=== PATIENT | male | born 1980 | race Caucasian/White ===

== ENCOUNTER 2016-08-09 05:18 | Inpatient (IN) ==
[2016-08-09] MEDS ORDERED: LACTATED RINGERS 1,000 ML IV ONE (05:33)
[2016-08-09] MEDS ORDERED: KETOROLAC 30 MG/1 ML VIAL IV STA (05:33)
[2016-08-09] MEDS ORDERED: ONDANSETRON 4 MG/2 ML VIAL IV STA (05:33)
[2016-08-09] MEDS ORDERED: HYDROmorphone 2 MG/1 ML VIAL IV STA ×2 (05:33→09:06)
[2016-08-09] MEDS ORDERED: ONDANSETRON 4 MG/2 ML VIAL ONE ×2 (05:38→11:17)
[2016-08-09] MEDS ORDERED: HYDROmorphone 2 MG/1 ML VIAL ONE ×2 (05:39→09:04)
[2016-08-09] MEDS ORDERED: KETOROLAC 30 MG/1 ML VIAL ONE (05:39)
[2016-08-09 05:52] LABS: Basophils % 0.3 % (0.0-0.8); Eosinophils # 0.1 10*3/uL (0.0-0.87); Eosinophils % 0.5 % (0.00-10.9); Hematocrit 47.1 VOL% (42.0-52.0); Hemoglobin 15.9 GM/DL (14.0-18.0); Immature Granulocytes % 0.3 %; Immature Granulocytes Absolute 0.04 #; Lymphocytes # 0.9 10*3/uL (1.4-4.0); Lymphocytes % 6.8 % (21.2-54.2); Mean Corpuscular HGB Conc 33.8 GM/DL (32-36); Mean Corpuscular Hemoglobin 29 PG (27-34); Mean Corpuscular Volume 86.7 FL (87-102); Mean Platelet Volume 9.3 FL (9.6-12.0); Monocytes # 0.8 10*3/uL (0.11-0.8); Monocytes % 5.6 % (1.7-12.7); Neutrophils # 11.9 10*3/uL (1.4-7.4); Neutrophils % 86.5 % (38.7-73.9); Platelet Count 351 T/CUMM (130-400); Red Blood Count 5.43 MC/CUMM (3.8-5.5); Red Cell Distribution Width 13.2 % (9.3-17.3); White Blood Count 13.8 T/CUMM (4-12)
[2016-08-09 06:13] LABS: Albumin 3.9 G/DL (3.4-5.0); Bilirubin,Total 0.5 MG/DL (0.2-1.0); Calcium 8.3 MG/DL (8.5-10.1); Osmolality,Calculated 294.4 MOS/KG (273-304); Potassium 3.6 MMOL/L (3.5-5.1); Total Protein 6.2 G/DL (6.4-8.3)
--- NOTE | 2016-08-09 06:21 | Emergency Department Note ---
Hari Lim Brooke, am scribing for, and in the presence of, Glenn Conway MD 05:37. Zoraida Lim Hans, MD, personally performed the services described in this documentation, ascribed by Libby Noriega in my presence, and it is both accurate and complete 621 . Arrival - Arrival ED Nursing Triage Note: Pt to room per [facility] stretcher. Pt c/o ABD pain x 2 hrs. Mode of Arrival: Stretcher Limitations: No Limitations Source: Patient, RN Notes Reviewed - History of Present Illness Onset (ago): hour(s) ("couple of hours") Consistency: intermittent Quality: sharp <Glenn Conway - Last Filed: 08/09/16 06:21> <Isaías Slater - Last Filed: 08/09/16 09:13> - Arrival Chief Complaint: Abdominal / Flank Pain Stated Complaint: ABD pain Time Seen by Provider: 08/09/16 05:30 - History of Present Illness HPI Narrative: Patient is a 35 year old male who presents to the ED with c/o RLQ abdominal pain that started a couple of hours ago. Patient says the pain is intermittent and sharp. He says she has also been nauseated and vomiting but denies any blood in his stool or diarrhea. Patient has no other complaints. He has PMHx of asthma. (Libby Noriega) Patient is a 35 year old male who presents to the ED with c/o RLQ abdominal pain that started a couple of hours ago. Patient says the pain is intermittent and sharp. He says she has also been nauseated and vomiting but denies any blood in his stool or diarrhea. Patient has no other complaints. He has PMHx of asthma. (Glenn Conway) Allergies/Adverse Reactions: Allergies Allergy/AdvReac Type Severity Reaction Status Date / Time No Known Allergies Allergy Verified 08/09/16 05:25 Home Medications: Home Medications Medication Instructions Recorded Confirmed Type No Known Home Medications [No 08/18/15 08/18/15 History Known Home Medications] Review of System - Review of System 12 point system: reviewed and no additional remarkable complaints except as stated - Review of System Constitutional: Absent: fever Respiratory: Absent: respiratory distress Gastrointestinal: Present: abdominal pain (RLQ), nausea, vomiting. Absent: diarrhea, hematochezia Skin: Absent: rash <Glenn Conway - Last Filed: 08/09/16 06:21> Medical,Surgical,& Family Hx - Medical History Respiratory: History of: Asthma - Social History Smoking Status: Smoker, status unknown Frequency of Alcohol Use: None Type of Drug Use: None <Glenn Conway Last Filed: 08/09/16 06:21> Exam - General General appearance: alert, in no apparent distress - Head Head exam: Present: atraumatic, normocephalic - Eye Eye exam: Present: normal appearance, PERRL, EOMI - ENT ENT exam: Present: normal exam - Neck Neck exam: Present: normal inspection - Chest Chest inspection: Present: normal inspection, symmetric chest wall rise - Respiratory Respiratory exam: Present: normal lung sounds bilaterally - Cardiovascular Cardiovascular exam: Present: regular rate, normal rhythm, normal heart sounds - Abdominal Exam Abdominal exam: Present: soft, tenderness (RLQ), hypoactive bowel sounds. Absent: distention - Extremities Exam Extremities exam: Present: normal inspection - Back Exam Back exam: Present: normal inspection - Neurological Exam Neurological exam: Present: alert, oriented X3 - Psychiatric Psychiatric exam: Present: normal affect, normal mood - Skin Skin exam: Present: warm, dry, intact, normal color <ChaceawildaGlenn - Last Filed: 08/09/16 06:21> Vital Signs: Vital Signs Temperature 98 F 08/09/16 05:18 Pulse Rate 82 08/09/16 08:00 Respiratory Rate 18 08/09/16 08:00 Blood Pressure 108/50 08/09/16 08:00 O2 Sat by Pulse Oximetry 100 08/09/16 08:00 Course <ZoraidaGlenn - Last Filed: 08/09/16 06:21> - Consultations Time: 09:12 <Isaías Slater - Last Filed: 08/09/16 09:13> - Consultations Consultation #1: Hospitalist will admit patient (Isaías Slater) Results - Labs CBC & BMP: 08/09/16 05:40 08/09/16 05:40 Lab Results: I have reviewed the patients labs <Isaías Slater - Last Filed: 08/09/16 09:13> Disposition <Glenn Conway - Last Filed: 08/09/16 06:21> Case discussed with: patient, patient's family Time of Disposition: 09:13 <Isaías Slater - Last Filed: 08/09/16 09:13> Clinical Impression: Abdominal pain, Enteritis Disposition: Still a Patient Condition: Stable
--- NOTE | 2016-08-09 08:13 | CT Report ---
Referring physician: Isaías Slater EXAM: CT abdomen and pelvis with contrast DATE: August 09, 2016 COMPARISON: CT abdomen and pelvis March 21, 2014 REASON: Right lower quadrant abdominal pain TECHNIQUE: Axial images of the abdomen and pelvis were obtained after administration of 100 cc of Omnipaque 350 IV contrast. Coronal and sagittal reformatted images were also provided. Total DLP is 608.1 mGy*cm. FINDINGS: Lower thorax: There is minimal atelectasis at the lung bases. A 0.4 cm pleural-based nodule is also seen at the basilar portion of the right lower lobe on image 14. Its stability since March 21, 2014 suggests a benign process. ABDOMEN: Liver: Unremarkable. Gallbladder and bile ducts: The gallbladder is unremarkable. The common bile duct is mildly prominent, measuring 0.7-0.8 cm in diameter. However, this is similar to the previous CT performed on March 21, 2014. Please correlate with liver function studies. Pancreas: Unremarkable. Spleen: Unremarkable. Adrenals: Unremarkable. Kidneys and ureters: No hydronephrosis or suspicious renal lesion is identified. 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 The ureters may join distally. PELVIS: Bladder: The bladder is poorly distended and difficult to evaluate. Reproductive: Unremarkable as visualized. ABDOMEN AND PELVIS: Bowel: There is diffuse wall thickening at loops of small bowel within the mid abdomen, likely representing jejunum. There is also scattered fluid within the colon. This could be related to an infectious process, inflammatory bowel disease or other inflammatory process. There is no evidence of bowel obstruction. Appendix: The appendix is unremarkable. Vasculature: The abdominal aorta is normal in size. Peritoneum/retroperitoneum: No free air or ascites is seen. Lymph nodes: No suspicious adenopathy is seen. Abdominal/pelvic wall: Unremarkable. Bones: There is moderate disc space narrowing and mild posterior marginal spurring at L5-S1. No acute osseous process is seen. IMPRESSION: 1. Diffuse wall thickening is seen at loops of small bowel within the mid abdomen, likely representing the jejunum. There is also scattered fluid within the colon. This could represent an infectious process, inflammatory bowel disease or other inflammatory process. Followup would be helpful. 2. The common bile duct is mildly prominent, measuring 0.7-0.8 cm in diameter. However, this is similar to the previous CT performed on March 21, 2014. Please correlate with liver function studies. The CT exam was performed using one or more of the following dose reduction techniques: Automated exposure control and adjustment of the mA and/or kV according to patient size. PROCEDURE INTERPRETED AT [facility] DEPARTMENT OF RADIOLOGY Final Report Signed by: Dr. Valeria Ambrocio
[2016-08-09] MEDS ORDERED: PROMETHAZINE 25 MG/1 ML VIAL ONE (09:03)
[2016-08-09] MEDS ORDERED: PROMETHAZINE 25 MG/1 ML VIAL IM STA (09:07)
[2016-08-09] MEDS ORDERED: CIPROFLOXACIN INJ 400 MG in PREMIX 1 EACH IV STA (09:13)
[2016-08-09] MEDS ORDERED: metroNIDAZOLE INJ 500 MG in PREMIX 1 EACH IV STA (09:13)
[2016-08-09] MEDS ORDERED: metroNIDAZOLE 500 MG/100 ML PREMIX IV ONE (09:46)
[2016-08-09] MEDS ORDERED: MORPHINE 2 MG/1 ML SYRINGE IV PRN (10:39)
[2016-08-09] MEDS ORDERED: ACETAMINOPHEN 325 MG TABLET PO PRN (10:39)
[2016-08-09] MEDS ORDERED: CIPROFLOXACIN 400 MG/200 ML PREMIX IV ONE (10:43)
--- NOTE | 2016-08-09 11:10 | Hospitalist History & Physical ---
<Jackie Ashley N - Last Filed: 08/09/16 11:03> Assessment and Plan - Time spent with patient Time spent with patient: Greater than 30 minutes (1) Abdominal pain Status: Acute Current Visit: Yes (2) Enteritis Status: Acute Assessment and plan: admit to med surg GI consult hydrate aggressively stool for cultures, Cdiff, and parasites, occult stool IV Cipro and Flagyl clear liquid diet PRN meds DVT prophylaxis routine labs in AM further plan and addendum to follow per Dr. Celestin Current Visit: Yes History of Present Illness Chief complaint: abdominal pain History of present illness: Mr. Busby is a 35 year old male who presents to the ER today with abdominal pain , severe right side pain, nausea vomiting and diarrhea. States it started early this morning. He states for the last week he has had a decreased appetite. Multiple episodes of vomiting and diarrhea. Denies blood in stool or vomit. He states he abdomen "feels like fire." He is found to have an increased WBC today and inflammation at the area of the jejunum, possible infectious process on CT. He denies prior hx of IBS, chrohns, colitis or other abdominal medical history. He has a PMH of daytime sleepiness. Denies PSH. He smokes about a pack of cigarettes a day, denies drugs or alcohol. He is pale and diaphoretic on exam. Vitals show tachycardia and mild hypotension. At present he denies chest pain, shortness of breath, headache, dysuria, or edema. Home Medications Medication Instructions Recorded Confirmed Type No Known Home Medications [No 08/18/15 08/18/15 History Known Home Medications] Allergies Allergy/AdvReac Type Severity Reaction Status Date / Time No Known Allergies Allergy Verified 08/09/16 05:25 Medical,Surgical,& Family Hx - Medical History Respiratory: History of: Asthma - Social History Smoking Status: Smoker, status unknown Frequency of Alcohol Use: None Type of Drug Use: None 12 point system: reviewed and no additional remarkable complaints except as stated Exam - Constitutional Vitals: Period Temp Pulse Resp BP Sys/Brunner Pulse Ox Last 24 Hr 98 F-98 F 81-97 16-20 97-142/50-96 94-100 General appearance: no acute distress - Head Head exam: Present: normal inspection, normocephalic - Eye Eye exam: Present: EOMI. Absent: scleral icterus Pupils: Present: KADIE, normal accommodation - ENT ENT exam: Present: normal exam, normal oropharynx - Neck Neck exam: Present: normal inspection. Absent: lymphadenopathy - Respiratory Respiratory exam: Present: clear to auscultation bilaterally. Absent: wheezes - Cardiovascular Cardiovascular exam: Present: regular rate and rhythm. Absent: tachycardia - GI/Abdominal GI/Abdominal exam: Present: hyperactive bowel sounds, tenderness (RUQ, RLQ), soft - Extremities Exam Extremities exam: Present: normal inspection, full ROM. Absent: edema - Back Exam Back exam: Present: normal inspection. Absent: muscle spasm - Neurological Exam Neurological exam: Present: alert, oriented X3 - Psychiatric Psychiatric exam: Present: normal affect, normal mood - Skin Skin exam: Present: normal color, warm, diaphoretic Results - Labs CBC & BMP: 08/09/16 05:40 08/09/16 05:40 Lab Results: I have reviewed the past 24 hour labs <Belinda Celestin - Last Filed: 08/09/16 12:24> History of Present Illness History of present illness: This is an addendum to HPI completed by [employer]. I personally reviewed and examined the patient. Agree with assessment and plan. 35 years old white male without past medical history presents to ER with sudden onset of sharp abdominal pain, nausea vomiting and diarrhea. He was in his normal state the evening. This morning he had fever chills and chills. He denies any hematemesis, melena or hematochezia. Denies any sick contacts. No recent traveling. Denies any similar episodes in the past. No inflammatory bowel syndrome in the family. On admission to ER he was found to have elevated WBC 13.8. CT abdomen revealed small bowel thickening located at the jejunum with surrounding fluid. CBD is mildly prominent but no changes since last CT in 2014. Liver function looks unremarkable. He was admitted to the floor and GI was consulted. Given to liters of normal saline the ER. Zofran for nausea, morphine for abdominal pain and ciprofloxacin and Flagyl IV for presumed infection. We will collect stool for C. difficile ova and parasites and culture. Exam - Constitutional Vitals: Period Temp Pulse Resp BP Sys/Brunner Pulse Ox Last 24 Hr 86-102 18-20 134-135/82-84 100-100 Results - Labs CBC & BMP: 08/09/16 05:40 08/09/16 05:40
[2016-08-09] MEDS: ONDANSETRON 4 MG/2 ML VIAL IV PRN ×2 (11:20→21:23)
--- NOTE | 2016-08-09 12:04 | Gastrointestinal Consult Note ---
Addendum entered and electronically signed by Dae Sorto MD 08/09/16 14: 24: Patient seen and examined at 12:30 PM. Acute abdominal pain with thickening of the jejunum on CT. His symptoms were fairly sudden onset he reports no prior similar symptoms. He has had some subjective fever but no nausea vomiting no other family members have been ill. He has had no change in bowel movements and no bleeding. No weight loss is reported. He denies any illicit drug use. He does smoke. No family history of inflammatory bowel disease is known. Abdomen is soft mild diffuse tenderness no rebound or guarding Agree with additional history and physical findings per Faina Shannon [facility] as below. I have reviewed his CT with Dr. Hermann Suero who raises some question of abnormality near the superior mesenteric artery and we will proceed with CT angiogram to further evaluate this region. We will continue with antibiotic treatment for the possibility of inflammatory bowel disease specifically Crohn' s whether or not we can reach this area with an endoscope is unclear and for now we will try to exclude other vascular abnormalities antibiotics and observe. We will also check sed rate C-reactive protein and JUNIOR for the possibility of vasculitis. He does not have an acute abdomen at this time. Original Note: <Faina Rodriguez D - Last Filed: 08/09/16 11:59> Assessment and Plan (1) Abdominal pain Status: Acute Assessment and plan: 2/3-Sudden onset of abd pain, N/V, diarrhea this morning. Afebrile. WBC elevated. CT of abdomen with contrast findings noted. Stool studies pending. Plan and addendum to follow by Dr Sorto. Current Visit: Yes History of Present Illness Chief complaint: Abdominal pain, nausea, vomiting History of present illness: Mr. Busby is a 35 year old male who presented to the ER with sudden onset this morning of abdominal pain, nausea, vomiting and diarrhea. Pt states he was in his usual state of health until 4 am this morning when he was awakened from a deep sleep with sudden sharp pains to his abdomen. Shortly after this he began having nausea and vomiting. He vomited multiple times prior to coming to the ER and had a episode of runny loose diarrhea. Pt states that he has never had this happen before. He has no prior history of GI disorders in the past. Denies any coffee ground, hematemesis, melena or hematochezia. Denies any recent weight loss, fever, but does have chills. States that he has not been around anyone recently with known illness, no one in the house has been sick. He has not eaten anywhere unusual or traveled recently. He continues to have intractable nausea and vomiting with diffuse abdominal pain. States he has noted over the last few days his appetite has been decreased but no other symptoms outside of this. WBC 13.8, lipase unremarkable. LFT unremarkable. BUN/Cr 24. Stool studies pending. CT of abdomen with contrast shows small bowel thickening, located at the jejunum, with surrounding fluid. CBD noted to be mildly prominent however no changes from last CT in 2014. Stool studies are pending. Afebrile. Home Medications Medication Instructions Recorded Confirmed Type No Known Home Medications [No 08/18/15 08/09/16 History Known Home Medications] Allergies Allergy/AdvReac Type Severity Reaction Status Date / Time No Known Allergies Allergy Verified 08/09/16 05:25 Medical,Surgical,& Family Hx - Medical History Respiratory: History of: Asthma - Social History Smoking Status: Smoker, status unknown Frequency of Alcohol Use: None Type of Drug Use: None 12 point system: reviewed and no additional remarkable complaints except as stated - Constitutional Constitutional: Present: as per HPI, chills - EENT Eyes: Present: as per HPI Ears: Present: as per HPI Nose, mouth and throat: Present: as per HPI - Cardiovascular Cardiovascular: Present: as per HPI - Respiratory Respiratory: Present: as per HPI - Gastrointestinal Gastrointestinal: Present: as per HPI, abdominal pain, cramping, diarrhea, nausea, vomiting - Genitourinary Genitourinary: Present: as per HPI - Musculoskeletal Musculoskeletal: Present: as per HPI - Neurological Neurological: Present: as per HPI - Psychiatric Psychiatric: Present: as per HPI - Endocrine Endocrine: Present: as per HPI - Hematologic/Lymphatic Hematologic/Lymphatic: Present: as per HPI Exam - Constitutional Vitals: Period Temp Pulse Resp BP Sys/Brunner Pulse Ox Last 24 Hr 86-102 18-20 134-135/82-84 100-100 General appearance: normal weight, no acute distress - Head Head exam: Present: normal inspection, normocephalic - Eye Eye exam: Present: other (lids and conjunctiva unremarkable). Absent: scleral icterus - ENT ENT exam: Present: normal exam, normal oropharynx - Neck Neck exam: Present: normal inspection - Respiratory Respiratory exam: Present: clear to auscultation bilaterally. Absent: rales, rhonchi, wheezes - Cardiovascular Cardiovascular exam: Present: regular rate and rhythm. Absent: diastolic murmur , JVD, systolic murmur - GI/Abdominal GI/Abdominal exam: Present: normal bowel sounds, tenderness, soft. Absent: ascites, distended, mass, organomegaly - Extremities Exam Extremities exam: Present: normal inspection, full ROM - Back Exam Back exam: Present: normal inspection - Neurological Exam Neurological exam: Present: alert, oriented X3 - Psychiatric Psychiatric exam: Present: normal affect, normal mood - Skin Skin exam: Present: normal color, warm, dry Results - Labs CBC & BMP: 08/09/16 05:40 08/09/16 05:40 Lab Results: I have reviewed the past 24 hour labs - Diagnostic Findings Procedure: CT Abdomen and Pelvis: report reviewed by me <Dae Sorto - Last Filed: 08/09/16 14:24> History of Present Illness History of present illness: Mr. Busby is a 35 year old male Exam - Constitutional Vitals: Period Temp Pulse Resp BP Sys/Brunner Pulse Ox Last 24 Hr 86-102 18-20 134-135/82-84 100-100 Results - Labs CBC & BMP: 08/09/16 05:40 08/09/16 05:40
[2016-08-09] MEDS ORDERED: PROMETHAZINE 25 MG/1 ML VIAL IM PRN (12:26)
[2016-08-09] MEDS: SODIUM CHLORIDE 0.9% 1,000 ML IV SCH ×3 (12:48→21:25)
--- NOTE | 2016-08-09 16:59 | CT Report ---
CT angio abdomen pelvis Indication: Acute abdominal pain. Question of SMA dissection on routine CT abdomen and pelvis from 6:[address] ANGIOGRAM ABDOMEN AND PELVIS DLP: 331 mGy*cm Technique: Axial CT images of the abdomen and pelvis were obtained during the arterial and venous phases of contrast injection. 3-D vascular MIPS reconstructions and multiplanar reformats were evaluated. Omnipaque 350, 100 cc. Comparison: Diagnostic CT abdomen pelvis obtained at 0639 hrs. Arteriogram: The following findings are in addition to those discussed in the initial CT scan report. Beginning approximately 8 mm from the origin of the SMA, the SMA develops a thickwalled appearance with a small 4 mm outpouching of contrast into a false lumen. The true lumen of the SMA is 8 mm at its origin, narrowing to 4 mm at the site of the dissection, and then widening again to 6 mm downstream of the short segment dissection. This dissection measures approximately 30 mm in length. There is a second branch vessel that curves off of the anterior aspect of the SMA and then progresses to the right, supplying inflow to the ileum, that is diffusely thickwalled over a distance of approximately 40 mm. No occluded segments are demonstrated and there is no evidence of dissection involving the other SMA branches, SHA, celiac artery or renal arteries. Both renal arteries have smooth contours and there is no evidence of either fibromuscular dysplasia or polyarteritis nodosa. No aneurysmal change is seen. The common iliac, internal iliac and external iliac arteries are widely patent. No termination of flow identified. Of note, bowel thickening of the jejunum has improved dramatically since 8 hours ago, with some persistent bowel wall thickening noted in the left midabdomen. No pneumatosis shown and no mesenteric edema or other inflammatory changes are seen at this time. Impression: 1. 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 There is a small 4 mm false lumen identified with contrast enhancement. SMA is, however, patent, with a dissection causing 50% diameter stenosis. Additionally, there is a first order branch off of the SMA that supplies ileum in the right abdomen that is diffusely thickwalled without occlusion. Both of these findings suggests vasculitis, although other diagnostic considerations could include connective tissue disorders or illicit drug use. 2. No occlusions identified. 3. Improved appearance to the jejunum when compared to 8 hours earlier, with decreased bowel wall thickening. No adverse change is seen such as pneumatosis. PROCEDURE INTERPRETED AT [facility] DEPARTMENT OF RADIOLOGY Final Report Signed by: Hermann Suero M.D.
--- NOTE | 2016-08-09 17:22 | General Surgery Consult Note ---
Assessment and Plan - Time spent with patient Time spent with patient: Greater than 30 minutes (1) Abdominal pain Status: Acute Assessment and plan: I have reviewed his films and discussed this case with Dr. Suero and Dr. Sorto and Dr. Mares. 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 He is not occluded. He actually is feeling better and we discussed nonoperative treatment of this if we can however if he worsens and we may need to look at intervention with either stenting or bypass. The etiology of this is unclear. Vasculitis would be a concern however this is very focal and unusual in appearance. We are checking some rheumatologic studies and if these look abnormal and we would consider steroids but I would like to hold off steroids initially because this will make his abdominal exam more difficult to interpret. I discussed all of these issues in detail with the patient and spent a good deal of time at the bedside and discussing this with his other physicians. I will be available this weekend and we'll continue to follow him. If he worsens then we may need to look at operative intervention. 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 We will anticoagulate him however the patient understands that this may require intervention. He does not appear to be occluded. Current Visit: Yes History of Present Illness Chief complaint: abdominal pain History of present illness: Mr. 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 He describes the pain at that time as being severe that his pain at this point is mild. The pain was accompanied by nausea and vomiting. He states that prior to this over the last several days he has had early satiety and a feeling of fullness in his upper abdomen. He is never had an episode like this before. He has had some weakness and flulike symptoms over the last couple of days. He describes some myalgias and malaise. He does not know of any aggravating or alleviating factors. Home Medications Medication Instructions Recorded Confirmed Type No Known Home Medications [No 08/18/15 08/09/16 History Known Home Medications] Allergies Allergy/AdvReac Type Severity Reaction Status Date / Time No Known Allergies Allergy Verified 08/09/16 05:25 Medical,Surgical,& Family Hx - Medical History Respiratory: History of: Asthma Musculoskeletal: History of: Back/Neck Problems, Herniated Disk - Surgical History Surgical History: noncontributory - Family History Family History: noncontributory - Social History Smoking Status: Smoker, status unknown Frequency of Alcohol Use: None Type of Drug Use: None - Constitutional Constitutional: Present: chills, malaise. Absent: fever(s), weight loss - EENT Nose, mouth and throat: Absent: dysphagia, hoarseness, sore throat - Cardiovascular Cardiovascular: Absent: chest pain at rest, chest pain with activity, dyspnea, dyspnea on exertion, syncope - Respiratory Respiratory: Absent: cough, dyspnea, hemoptysis, dyspnea on exertion - Gastrointestinal Gastrointestinal: Present: abdominal pain, bloating, early satiety, nausea, vomiting. Absent: coffee ground emesis, constipation, cramping, diarrhea, hematemesis, hematochezia, melena, jaundice - Genitourinary Genitourinary: Absent: dysuria, hematuria - Musculoskeletal Musculoskeletal: Present: back pain - Neurological Neurological: Absent: focal weakness, syncope - Endocrine Endocrine: Absent: polyuria Hematologic/Lymphatic: Absent: easy bleeding, easy bruising Exam - Constitutional Vitals: Period Temp Pulse Resp BP Sys/Brunner Pulse Ox Last 24 Hr 86-102 18-20 134-135/82-84 100-100 General appearance: no acute distress - Head Head exam: Present: normocephalic - Eye Eye exam: Absent: conjunctival injection, scleral icterus - ENT Mouth exam: Present: normal voice - Neck Neck exam: Present: trachea midline. Absent: tenderness, thyromegaly - Respiratory Respiratory exam: Present: clear to auscultation bilaterally. Absent: accessory muscle use - Cardiovascular Cardiovascular exam: Present: RRR - GI/Abdominal GI/Abdominal exam: Present: normal bowel sounds, tenderness (mild right lower quadrant), soft. Absent: distended, guarding, mass, rebound - Extremities Exam Extremities exam: Absent: edema - Neurological Exam Neurological exam: Present: alert, oriented X3. Absent: motor sensory deficit Speech: Present: normal - Skin Skin exam: Present: normal color Results - Labs CBC & BMP: 08/09/16 05:40 08/09/16 05:40 Lab Results: I have reviewed the past 24 hour labs - Diagnostic Findings Procedure: CT Abdomen and Pelvis: image reviewed by me, report reviewed by me
--- NOTE | 2016-08-09 18:20 | Event Note ---
I have reviewed the CT angiogram with Dr. Suero and Dr. Valladares the third. It appears that he does have a dissection at the origin of the SMA. Etiology of this is unclear. He does not have an acute abdomen at this time. Vasculitis workup has been ordered and at this point will start him on heparin to try and prevent any further clotting forming in his SMA and observe. If he deteriorates clinically he may need surgical exploration. Dr. Trujillo was not believed that arteriogram would provide any new or treatable information. We have discussed empiric treatment with steroids however I would hold off on that unless his markers do show some evidence of underlying inflammation to suggest a vasculitis due to difficulty that may create in monitoring his exam. It is interesting that his CT changes have significantly improved on this afternoon CT from the one earlier today. Abdomen soft nondistended I have discussed the plan and findings with the patient and his family and they are in agreement.
[2016-08-09] MEDS: HEPARIN DRIP 25,000 UNITS/500 ML PREMIX IV SCH (18:56)
[2016-08-09 20:16] LABS: Barbiturates Screen,Urine Negative (Negative); Benzodiazepines Screen,Urine Negative (Negative); Cannabinoid Screen,Urine Negative (Negative); Opiate Screen,Urine Positive (Negative); Phencyclidine Screen,Urine Negative (Negative)
[2016-08-09] MEDS: metroNIDAZOLE INJ 500 MG in PREMIX 1 EACH IV SCH (21:19)
[2016-08-09] MEDS: CIPROFLOXACIN INJ 400 MG in PREMIX 1 EACH IV SCH (23:17)
[2016-08-10 02:19] LABS: Basophils % 0.5 % (0.0-0.8); Eosinophils # 0.2 10*3/uL (0.0-0.87); Eosinophils % 2.3 % (0.00-10.9); Hematocrit 39.1 VOL% (42.0-52.0); Hemoglobin 13.1 GM/DL (14.0-18.0); Immature Granulocytes % 0.2 %; Immature Granulocytes Absolute 0.02 #; Lymphocytes # 1.5 10*3/uL (1.4-4.0); Lymphocytes % 17.9 % (21.2-54.2); Mean Corpuscular HGB Conc 33.5 GM/DL (32-36); Mean Corpuscular Hemoglobin 29 PG (27-34); Mean Corpuscular Volume 87.3 FL (87-102); Mean Platelet Volume 9.5 FL (9.6-12.0); Monocytes # 0.7 10*3/uL (0.11-0.8); Monocytes % 8.1 % (1.7-12.7); Neutrophils # 5.9 10*3/uL (1.4-7.4); Platelet Count 271 T/CUMM (130-400); Red Blood Count 4.48 MC/CUMM (3.8-5.5); Red Cell Distribution Width 13.4 % (9.3-17.3); White Blood Count 8.3 T/CUMM (4-12)
[2016-08-10 02:42] LABS: Alanine Aminotransferase 14 U/L (16-61); Alkaline Phosphatase 51 U/L (45-117); Aspartate Amino Transferase 14 U/L (0-37); Bilirubin,Total < 0.39 MG/DL (0.2-1.0); Blood Urea Nitrogen 22 MG/DL (7-18); Calcium 7.6 MG/DL (8.5-10.1); Glucose 92 MG/DL (74-106); Osmolality,Calculated 298.1 MOS/KG (273-304); Potassium 3.3 MMOL/L (3.5-5.1); Sodium 149 MMOL/L (136-145); Total Protein 5.1 G/DL (6.4-8.3)
--- NOTE | 2016-08-10 08:21 | Gastrointestinal Progress Note ---
Assessment and Plan - Time spent with patient Time spent with patient: Greater than 30 minutes (1) Dissection of mesenteric artery Status: Acute Current Visit: Yes (2) Other specified counseling Status: Acute Current Visit: Yes Exam (Progress Note) - Constitutional Vitals: Period Temp Pulse Resp BP Sys/Brunner Pulse Ox Last 24 Hr 97.5 F-99.2 F 61-102 16-20 99-135/57-85 97-100 Results - Labs CBC & BMP: 08/10/16 02:03 08/10/16 02:03 Note Addendum: PLEASE NOTE -- automatic citation of patient information is unavoidable in this electronic note. I have made a reasonable effort to review the information cited , but it is not a part of my evaluation, impression, or recommendation unless specifically discussed in the dictated text that follows. As well, voice recognition software was used in the creation of this clinical note. Reasonable effort was made to identify and correct gross errors. Despite proofreading, errors in full fashioned garment knitter may be present, including nonsense verbiage at times. If you encounter such an error, please contact me at for discussion and correction. -- Yvonne Chief complaint: abdominal pain Subjective: the patient is a 35-year-old male seen for follow-up of abdominal pain. He was admitted to the hospitalist service yesterday with acute of sudden onset pain. He underwent CT scanning with dilated loops of small bowel in the jejunum earlier in the day and sit angiogram with improved thickening in the bowel but identification of a SMA dissection later in the day. Autoimmune spectrum vasculitis is apparently under consideration but not definitive at this point. General surgery consultation, Dr. Blaine HAYS, has been taken and recommendation is to try to manage this non-operatively. The patient reports he is feeling much better than when he was admitted but continues to have short painful episodes. He is eating comfortably and tolerating food. He has had a bowel movement with no blood, mucus, or pus. Medications: Tylenol, ciprofloxacin, heparin, [place], Flagyl, morphine, Zofran, Phenergen Review of Symptoms: 12 point review of symptoms was negative except as noted above Physical examination: Vital Signs: Current vital signs reviewed. General Appearance: lying in bed. Comfortable. No apparent distress. Head: Normocephalic. Eyes: no scleral icterus. No scleral injection. No conjunctival pallor. Oral Cavity: Odor of breath was normal. No drooling was observed. Lips showed no abnormalities. Lungs: Respiration rhythm and depth was normal. Cardiovascular: Heart rate and rhythm were normal. Abdomen: abdomen was not distended. Abdominal auscultation revealed no abnormalities. Ascites was not discovered. Abdominal palpation revealed mild tenderness and no hepatosplenomegaly. Musculoskeletal System: musculoskeletal system was grossly normal. Neurological: level of consciousness was normal. Speech was normal. No coordination/cerebellum abnormalities were noted. Skin: Gen. appearance was normal. Color and pigmentation were normal. No skin lesions were appreciated. Laboratory: white blood count 8.3, hemoglobin 13.1, hematocrit 39.1, platelets 271, PTT 66, ALT 14, AST 14, total bilirubin 0.4, albumin 3.0, total protein 5.1 Radiology: reviewed as documented above Impressions: 1. Superior mesenteric artery dissection -- with CT evidence of inflammatory change in the small bowel, the question of inflammatory bowel disease has been raised. It is true that vasculitis is a uncommon extra intestinal manifestation of inflammatory bowel disease. its also true that spontaneous dissection of the SMA is an uncommon finding in a person in this age group without such a risk factor. Understanding that, it remains a difficult diagnostic dilemma, and I agree with continued pursuit of autoimmune markers prior to starting steroid, particularly if clinical course remains positive. It would not be unreasonable to contact cardiology for consideration of intravascular evaluation with consideration of stenting, particularly if the patient experiences a clinical reversal. Of course, should the patient experience rupture, surgical intervention may be necessary. Endoscopic evaluation is not indicated at this point. We will continue to follow with you. 2. Patient Counseling: Medical Management -- Patient seen for greater than 30 minutes. Greater than 50% of this time was spent counseling regarding differential diagnosis, likely diagnosis,, diagnostic and therapeutic options, risks, benefits, and alternatives to procedures and medications, informed consent, and plan of care generally. Patient has expressed understanding and wishes to proceed. Recommendations: -- continue volume management -- continue anticoagulation -- consider cardiology evaluation for consideration of intravascular therapy -- follow-up results of autoimmune testing -- endoscopic evaluation should be considered during convalescence -- we will continue to follow with you
--- NOTE | 2016-08-10 08:54 | General Surgery Progress Note ---
Assessment and Plan (1) Abdominal pain Status: Acute Assessment and plan: I have reviewed his films and discussed this case with Dr. Suero and Dr. Sorto and Dr. Mares. 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 He is not occluded. He actually is feeling better and we discussed nonoperative treatment of this if we can however if he worsens and we may need to look at intervention with either stenting or bypass. The etiology of this is unclear. Vasculitis would be a concern however this is very focal and unusual in appearance. We are checking some rheumatologic studies and if these look abnormal and we would consider steroids but I would like to hold off steroids initially because this will make his abdominal exam more difficult to interpret. I discussed all of these issues in detail with the patient and spent a good deal of time at the bedside and discussing this with his other physicians. I will be available this weekend and we'll continue to follow him. If he worsens then we may need to look at operative intervention. 08/10: He feels better. He has less abdominal pain but still has some soreness in his right lower quadrant. He has no acidosis or signs of bowel ischemia. His white blood cell count is normal. I would continue with anticoagulation IV at this point and I will leave it up to Dr. Mares on Friday about converting to oral anticoagulation. Hopefully we can avoid operative intervention . 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 We will anticoagulate him however the patient understands that this may require intervention. He does not appear to be occluded. Current Visit: Yes Subjective Patient reports: Present: feels better, pain is less. Absent: blood in stool, nausea, vomiting, fever Exam - Constitutional Vitals: Period Temp Pulse Resp BP Sys/Brunner Pulse Ox Last 24 Hr 97.5 F-99.2 F 61-102 16-20 99-135/57-85 97-100 General appearance: no acute distress - Head Head exam: Present: normocephalic - Eye Eye exam: Absent: scleral icterus - Respiratory Respiratory exam: Absent: accessory muscle use - GI/Abdominal GI/Abdominal exam: Present: soft. Absent: distended, guarding, tenderness, rebound Results - Labs CBC & BMP: 08/10/16 02:03 08/10/16 02:03 Lab Results: I have reviewed the past 24 hour labs
[2016-08-10] MEDS: CIPROFLOXACIN INJ 400 MG in PREMIX 1 EACH IV SCH ×2 (09:39→21:19)
--- NOTE | 2016-08-10 12:44 | Hospitalist Progress Note ---
Assessment and Plan (1) Dissection of mesenteric artery Status: Acute Assessment and plan: Dr James, Managed by Surgery, cont heparin drip, vasculitis workup pending Current Visit: Yes (2) Enteritis Status: Acute Assessment and plan: Continue Cipro and Flagyl for now Current Visit: Yes Hospitalist: Subjective Interval history: Spoke with Dr. Valladares the third about this case. He feels that patient is stable from the floor and does not need any intervention at this point. Dr. James is aware of patient and is available if intervention needed prior to Friday. Exam - Constitutional Vitals: Period Temp Pulse Resp BP Sys/Brunner Pulse Ox Last 24 Hr 97.5 F-98.9 F 61-99 16-20 99-132/57-68 97-100 Exam: Heart Rate-[RRR] Lungs-[CTAB] GI-[+bs soft, NT] Ext-[no edema] neuro motor 5/5, alert and oriented times 3 psych normal mood and affect General no acute distress Results - Labs CBC & BMP: 08/10/16 02:03 08/10/16 02:03 Lab Results: I have reviewed the past 24 hour labs - Diagnostic Findings Procedure: CT Abdomen and Pelvis: report reviewed by me (30 mm dissection of prox sma.)
[2016-08-10] MEDS: metroNIDAZOLE INJ 500 MG in PREMIX 1 EACH IV SCH ×2 (12:58→23:29)
[2016-08-10] MEDS: POTASSIUM CHLORIDE INJ 40 MEQ in SODIUM CHLORIDE 0.45% 1,000 ML IV SCH (14:58)
[2016-08-10] MEDS: HEPARIN DRIP 25,000 UNITS/500 ML PREMIX IV SCH (15:00)
[2016-08-10] MEDS: ONDANSETRON 4 MG/2 ML VIAL IV PRN (21:18)
[2016-08-10 23:10] LABS: INR 1.1; PT Patient Result 11.9 SECS
[2016-08-10 23:11] LABS: Partial Thromboplastin Time 86.3 SECS (0-40)
[2016-08-11] MEDS: HEPARIN DRIP 25,000 UNITS/500 ML PREMIX IV SCH ×2 (00:06→16:02)
[2016-08-11] MEDS: POTASSIUM CHLORIDE INJ 40 MEQ in SODIUM CHLORIDE 0.45% 1,000 ML IV SCH ×2 (02:15→18:08)
[2016-08-11 07:02] LABS: INR 1.1; PT Patient Result 11.8 SECS
[2016-08-11 07:13] LABS: Partial Thromboplastin Time 58.9 SECS (0-40)
--- NOTE | 2016-08-11 09:49 | General Surgery Progress Note ---
Assessment and Plan (1) Abdominal pain Status: Acute Assessment and plan: I have reviewed his films and discussed this case with Dr. Suero and Dr. Sorto and Dr. Mares. 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 He is not occluded. He actually is feeling better and we discussed nonoperative treatment of this if we can however if he worsens and we may need to look at intervention with either stenting or bypass. The etiology of this is unclear. Vasculitis would be a concern however this is very focal and unusual in appearance. We are checking some rheumatologic studies and if these look abnormal and we would consider steroids but I would like to hold off steroids initially because this will make his abdominal exam more difficult to interpret. I discussed all of these issues in detail with the patient and spent a good deal of time at the bedside and discussing this with his other physicians. I will be available this weekend and we'll continue to follow him. If he worsens then we may need to look at operative intervention. 08/10: He feels better. He has less abdominal pain but still has some soreness in his right lower quadrant. He has no acidosis or signs of bowel ischemia. His white blood cell count is normal. I would continue with anticoagulation IV at this point and I will leave it up to Dr. Mares on Friday about converting to oral anticoagulation. Hopefully we can avoid operative intervention . I do not see signs of bowel ischemia or an acute abdomen 08/11: He feels better and has less abdominal pain. His abdomen is nontender. I do not see evidence of significant bowel ischemia. 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 We will anticoagulate him however the patient understands that this may require intervention. He does not appear to be occluded. 08/11: We are keeping him anticoagulated for this finding. I have discussed this case with Dr. Mares. He does not have evidence of vascular occlusion at this point. His ESR is normal. Current Visit: Yes Subjective Patient reports: Present: feels better, pain is less, tolerating liquids well. Absent: nausea, vomiting, shortness of breath, fever Exam - Constitutional Vitals: Period Temp Pulse Resp BP Sys/Brunner Pulse Ox Last 24 Hr 97.9 F-98.7 F 52-64 18-20 99-116/55-73 96-98 General appearance: no acute distress - Head Head exam: Present: normocephalic - Eye Eye exam: Absent: scleral icterus - Respiratory Respiratory exam: Absent: accessory muscle use - GI/Abdominal GI/Abdominal exam: Present: soft. Absent: distended, tenderness, rebound Results - Labs CBC & BMP: 08/10/16 02:03 08/10/16 02:03
[2016-08-11] MEDS: ALBUTEROL/IPRATROPIUM 3 ML NEB RESP TX SCH ×3 (10:09→20:06)
--- NOTE | 2016-08-11 10:51 | Gastrointestinal Progress Note ---
Assessment and Plan (1) Dissection of mesenteric artery Status: Acute Current Visit: Yes (2) Other specified counseling Status: Acute Current Visit: Yes Exam (Progress Note) - Constitutional Vitals: Period Temp Pulse Resp BP Sys/Brunner Pulse Ox Last 24 Hr 97.9 F-98.7 F 48-64 16-20 99-116/55-73 96-99 Results - Labs CBC & BMP: 08/10/16 02:03 08/10/16 02:03 Note Addendum: PLEASE NOTE -- automatic citation of patient information is unavoidable in this electronic note. I have made a reasonable effort to review the information cited , but it is not a part of my evaluation, impression, or recommendation unless specifically discussed in the dictated text that follows. As well, voice recognition software was used in the creation of this clinical note. Reasonable effort was made to identify and correct gross errors. Despite proofreading, errors in site interpreter may be present, including nonsense verbiage at times. If you encounter such an error, please contact me at for discussion and correction. -- Yvonne Chief complaint: abdominal pain Subjective: the patient is a 35-year-old male seen for follow-up of SMA dissection. Patient reports continued improvement but still is having episodes of pain. His general surgeon does not find evidence of significant bowel ischemia. He is eating and drinking comfortably. Has not had a bowel movement no new labs today. Medications: Tylenol, ciprofloxacin, heparin, [place], Flagyl, morphine, Zofran, Phenergen Review of Symptoms: 12 point review of symptoms was negative except as noted above Physical examination: Vital Signs: Current vital signs reviewed. General Appearance: lying in bed. Comfortable. No apparent distress. Head: Normocephalic. Eyes: no scleral icterus. No scleral injection. No conjunctival pallor. Oral Cavity: Odor of breath was normal. No drooling was observed. Lips showed no abnormalities. Lungs: Respiration rhythm and depth was normal. Cardiovascular: Heart rate and rhythm were normal. Abdomen: abdomen was not distended. Abdominal auscultation revealed no abnormalities. Ascites was not discovered. Abdominal palpation revealed mild tenderness and no hepatosplenomegaly. Musculoskeletal System: musculoskeletal system was grossly normal. Neurological: level of consciousness was normal. Speech was normal. No coordination/cerebellum abnormalities were noted. Skin: Gen. appearance was normal. Color and pigmentation were normal. No skin lesions were appreciated. Laboratory: no new labs today Radiology: reviewed Impressions: 1. Superior mesenteric artery dissection -- the patient seems to be recovering at this point. Surveillance radiology is probably the next most reasonable diagnostic there remains a potential need for intravascular intervention. There is no indication for present. 2. Patient Counseling: Medical Management -- Patient seen for less than 30 minutes. Greater than 50% of this time was spent counseling regarding differential diagnosis, likely diagnosis,, diagnostic and therapeutic options, risks, benefits, and alternatives to procedures and medications, informed consent, and plan of care generally. Patient has expressed understanding and wishes to proceed. Recommendations: -- continue volume management -- continue anticoagulation -- endoscopic evaluation should be considered during convalescence -- we will continue to follow with you. Dr. Sorto will resume G.I. care for this patient.
[2016-08-11] MEDS: CIPROFLOXACIN INJ 400 MG in PREMIX 1 EACH IV SCH ×2 (11:02→21:26)
[2016-08-11] MEDS: metroNIDAZOLE INJ 500 MG in PREMIX 1 EACH IV SCH ×2 (13:47→23:30)
--- NOTE | 2016-08-11 15:09 | Hospitalist Progress Note ---
Assessment and Plan (1) Dissection of mesenteric artery Status: Acute Assessment and plan: Dr James and interventional radiology will see in am, cont heparin drip, vasculitis unlikely with sed rate of 2 Current Visit: Yes (2) Enteritis Status: Acute Assessment and plan: Continue Cipro and Flagyl for now Current Visit: Yes (3) COPD (chronic obstructive pulmonary disease) Status: Acute Assessment and plan: duonebs ordered Current Visit: Yes Hospitalist: Subjective Interval history: Patient's pain is unchanged. Dr. Valladares the third does not see any evidence of bowel ischemia. Plan for possible intervention by interventional radiology and Dr. Mares in am. Patient says he is not sleeping and will give him Sonata. He also has some COPD but does not want a nicotine patch but would look like some breathing treatments. Exam - Constitutional Vitals: Period Temp Pulse Resp BP Sys/Brunner Pulse Ox Last 24 Hr 98 F-98.7 F 48-64 16-18 99-116/55-67 96-99 Exam: Heart Rate-[RRR] Lungs-[CTAB but diminished] GI-[+bs soft, diffusely tender] Ext-[no edema] neuro motor 5/5, alert and oriented times 3 psych normal mood and affect General no acute distress Results - Labs CBC & BMP: 08/10/16 02:03 08/10/16 02:03 Lab Results: I have reviewed the past 24 hour labs
[2016-08-11 15:36] LABS: INR 1.1; PT Patient Result 11.4 SECS; Partial Thromboplastin Time 38.2 SECS (0-40)
[2016-08-11] MEDS ORDERED: POTASSIUM CHLORIDE INJ 20 MEQ in SODIUM CHLORIDE 0.45% 1,000 ML IV SCH (16:00)
[2016-08-11] MEDS ORDERED: MAGNESIUM HYDROXIDE SUSP 30 ML UDCUP PO PRN (16:39)
[2016-08-11] MEDS ORDERED: HEPARIN 5,000 UNIT/1 ML VIAL IV ONE (16:47)
[2016-08-11] MEDS: SODIUM CHLOR 0.45% KCL 20 MEQ 20 MEQ/1,000 ML BAG IV SCH (18:32)
[2016-08-11] MEDS: ONDANSETRON 4 MG/2 ML VIAL IV PRN (19:44)
[2016-08-11] MEDS: ZALEPLON 5 MG CAPSULE PO SCH (21:26)
[2016-08-12 00:38] LABS: Basophils % 0.6 % (0.0-0.8); Eosinophils # 0.2 10*3/uL (0.0-0.87); Eosinophils % 3.6 % (0.00-10.9); Hematocrit 36.1 VOL% (42.0-52.0); Hemoglobin 11.7 GM/DL (14.0-18.0); Lymphocytes # 2.3 10*3/uL (1.4-4.0); Lymphocytes % 36.7 % (21.2-54.2); Mean Corpuscular HGB Conc 32.4 GM/DL (32-36); Mean Corpuscular Hemoglobin 29 PG (27-34); Mean Corpuscular Volume 88.7 FL (87-102); Mean Platelet Volume 9.5 FL (9.6-12.0); Monocytes # 0.8 10*3/uL (0.11-0.8); Monocytes % 12.3 % (1.7-12.7); Neutrophils # 2.9 10*3/uL (1.4-7.4); Neutrophils % 46.8 % (38.7-73.9); Platelet Count 258 T/CUMM (130-400); Red Blood Count 4.07 MC/CUMM (3.8-5.5); Red Cell Distribution Width 13.2 % (9.3-17.3); White Blood Count 6.2 T/CUMM (4-12)
[2016-08-12 01:00] LABS: INR 1.1; PT Patient Result 11.4 SECS
[2016-08-12 01:09] LABS: Partial Thromboplastin Time 81.9 SECS (0-40)
[2016-08-12 01:15] LABS: Calcium 7.9 MG/DL (8.5-10.1); Potassium 3.1 MMOL/L (3.5-5.1)
[2016-08-12 06:49] LABS: PT Patient Result 11.1 SECS
[2016-08-12 06:59] LABS: Partial Thromboplastin Time 84.4 SECS (0-40)
[2016-08-12] MEDS: ALBUTEROL/IPRATROPIUM 3 ML NEB RESP TX SCH ×3 (07:32→19:46)
[2016-08-12] MEDS: CIPROFLOXACIN INJ 400 MG in PREMIX 1 EACH IV SCH ×2 (09:28→21:00)
[2016-08-12] MEDS: SODIUM CHLOR 0.45% KCL 20 MEQ 20 MEQ/1,000 ML BAG IV SCH (09:28)
[2016-08-12] MEDS: POTASSIUM CHLORIDE INJ 40 MEQ in SODIUM CHLORIDE 0.45% 1,000 ML IV SCH (09:41)
--- NOTE | 2016-08-12 10:13 | Hospitalist Progress Note ---
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 On heparin infusion. continue clears. autoimmune workup for vasculitis was negative- ESR is 2. 2)hypernatremia- change to d5w at 125. consult branch retail executive for PPN. 3)hypokalemia- replace with IV riders. 4)smoker- counselled cessation- smoking contributed to this problem. Current Visit: Yes (2) Abdominal pain Status: Acute Current Visit: Yes Qualifiers: Abdominal location: right lower quadrant Qualified Code(s): R10.31 - Right lower quadrant pain (3) Enteritis Status: Acute Current Visit: Yes Hospitalist: Subjective Interval history: Mr Busby continues to have pain in RLQ and lower abdomen, sometimes also in back. He ate some soft food yesterday adn had return of his symptoms from admission- severe pain, nausea. He is tolerating clears. Dr James to see today. No fever, no new complaints. Up to walk in halls, sit in chair. On heparin. Exam - Constitutional Vitals: Period Temp Pulse Resp BP Sys/Brunner Pulse Ox Last 24 Hr 98 F-98.8 F 53-79 16-20 99-121/52-66 94-100 General appearance: normal weight, no acute distress - Head Head exam: Present: normocephalic, atraumatic - Eye Eye exam: Present: EOMI. Absent: scleral icterus - Respiratory Respiratory exam: Present: clear to auscultation bilaterally - Cardiovascular Cardiovascular exam: Present: regular rate and rhythm - GI/Abdominal GI/Abdominal exam: Present: normal bowel sounds, tenderness (full feeling in RLQ and lower abdomen), soft - Extremities Exam Extremities exam: Absent: edema - Neurological Exam Neurological exam: Present: alert, oriented X3 - Skin Skin exam: Present: warm, dry Results - Labs CBC & BMP: 08/12/16 00:24 08/12/16 00:24 Lab Results: I have reviewed the past 24 hour labs
[2016-08-12] MEDS ORDERED: NICOTINE 21 MG/24 HR PATCH TRANSDERM PRN (10:42)
--- NOTE | 2016-08-12 11:08 | Gastrointestinal Progress Note ---
<Faina Rodriguez - Last Filed: 08/12/16 11:04> Assessment and Plan (1) Abdominal pain Status: Acute Assessment and plan: /-Abd pain improved except with eating. No N/V. Continue to monitor at this time. Plan and addendum to follow by DR Sorto. 2/3-Sudden onset of abd pain, N/V, diarrhea this morning. Afebrile. WBC elevated. CT of abdomen with contrast findings noted. Stool studies pending. Plan and addendum to follow by Dr Sorto. Current Visit: Yes Qualifiers: Abdominal location: right lower quadrant Qualified Code(s): R10.31 - Right lower quadrant pain Gastroenterology - PN: Subj Interval history: CC: Abdominal pain Pt is awake and alert sitting up in bed. States he is feeling about the same. He states he has some abdominal pain when he tries to eat other than this he has had no other symptoms. No nausea or vomiting. He is noted to be going outside to smoke today. Discussed this with him that he does not need to continue smoking and as well high risk with the heparin infusion. Pt states that he will not smoke anymore and discussed nicotine patch. Abdomen is soft, nontender. ROS: Denies SOB or chest pain Exam (Progress Note) - Constitutional Vitals: Period Temp Pulse Resp BP Sys/Brunner Pulse Ox Last 24 Hr 98 F-98.8 F 53-79 16-20 99-121/52-66 94-100 General appearance: normal weight, no acute distress - Head Head exam: Present: normal inspection, normocephalic - Eye Eye exam: Present: other (lids and conjunctiva unremarakble). Absent: scleral icterus - ENT ENT exam: Present: normal exam, normal oropharynx - Neck Neck exam: Present: normal inspection - Respiratory Respiratory exam: Present: clear to auscultation bilaterally. Absent: rales, rhonchi, wheezes - Cardiovascular Cardiovascular exam: Present: regular rate and rhythm. Absent: diastolic murmur , JVD, systolic murmur - GI/Abdominal GI/Abdominal exam: Present: normal bowel sounds, soft. Absent: ascites, distended, mass, organomegaly, tenderness - Extremities Exam Extremities exam: Present: normal inspection, full ROM - Back Exam Back exam: Present: normal inspection - Neurological Exam Neurological exam: Present: alert, oriented X3 - Psychiatric Psychiatric exam: Present: normal affect, normal mood - Skin Skin exam: Present: normal color, warm, dry Results - Labs CBC & BMP: 08/12/16 00:24 08/12/16 00:24 Lab Results: I have reviewed the past 24 hour labs <Dae Sorto - Last Filed: 08/12/16 17:20> Exam (Progress Note) - Constitutional Vitals: Period Temp Pulse Resp BP Sys/Brunner Pulse Ox Last 24 Hr 98 F-98.5 F 58-83 18-22 99-115/52-74 94-100 Results - Labs CBC & BMP: 08/12/16 00:24 08/12/16 00:24
[2016-08-12] MEDS: POTASSIUM CHLORIDE RIDER 10 MEQ in PREMIX 1 EACH IV SCH ×4 (11:21→18:45)
[2016-08-12] MEDS: metroNIDAZOLE INJ 500 MG in PREMIX 1 EACH IV SCH ×2 (11:21→23:25)
[2016-08-12] MEDS: DEXTROSE 5% 1,000 ML IV SCH (11:22)
[2016-08-12] MEDS: HEPARIN DRIP 25,000 UNITS/500 ML PREMIX IV SCH (13:12)
[2016-08-12] MEDS: FAT EMULSION 20% 250 ML IV SCH (14:14)
--- NOTE | 2016-08-12 14:43 | General Surgery Progress Note ---
Assessment and Plan (1) Abdominal pain Status: Acute Assessment and plan: I have reviewed his films and discussed this case with Dr. Suero and Dr. Sorto and Dr. Mares. 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 He is not occluded. He actually is feeling better and we discussed nonoperative treatment of this if we can however if he worsens and we may need to look at intervention with either stenting or bypass. The etiology of this is unclear. Vasculitis would be a concern however this is very focal and unusual in appearance. We are checking some rheumatologic studies and if these look abnormal and we would consider steroids but I would like to hold off steroids initially because this will make his abdominal exam more difficult to interpret. I discussed all of these issues in detail with the patient and spent a good deal of time at the bedside and discussing this with his other physicians. I will be available this weekend and we'll continue to follow him. If he worsens then we may need to look at operative intervention. 08/10: He feels better. He has less abdominal pain but still has some soreness in his right lower quadrant. He has no acidosis or signs of bowel ischemia. His white blood cell count is normal. I would continue with anticoagulation IV at this point and I will leave it up to Dr. Mares on Friday about converting to oral anticoagulation. Hopefully we can avoid operative intervention . I do not see signs of bowel ischemia or an acute abdomen 08/11: He feels better and has less abdominal pain. His abdomen is nontender. I do not see evidence of significant bowel ischemia. 08/12: He feels better but when he tried to eat last night had abdominal pain again similar to before. This is concerning to me for potential intestinal angina. I have discussed the case with Dr. Mares and with Dr. Suero they're going to look at the potential for intervention. In the meantime we're keeping him anticoagulated. I do not see an indication for bowel resection or laparotomy at this point. He has no acidosis or signs of bowel necrosis. 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 We will anticoagulate him however the patient understands that this may require intervention. He does not appear to be occluded. 08/11: We are keeping him anticoagulated for this finding. I have discussed this case with Dr. Mares. He does not have evidence of vascular occlusion at this point. His ESR is normal. Current Visit: Yes Subjective Patient reports: Present: feels better, still having pain, tolerating liquids well. Absent: nausea, vomiting Exam - Constitutional Vitals: Period Temp Pulse Resp BP Sys/Brunner Pulse Ox Last 24 Hr 98 F-98.8 F 53-83 16-22 99-121/52-66 94-100 General appearance: no acute distress - Respiratory Respiratory exam: Absent: accessory muscle use - GI/Abdominal GI/Abdominal exam: Present: soft. Absent: distended, tenderness, rebound Results - Labs CBC & BMP: 08/12/16 00:24 08/12/16 00:24 Lab Results: I have reviewed the past 24 hour labs
--- NOTE | 2016-08-12 15:49 | General Surgery Consult Note ---
History of Present Illness Chief complaint: abnormal superior mesenteric artery History of present illness: Mr. Busby is a 35 year old male I discussed Mr. Busby and his findings with Dr. Valladares the third and Dr. Suero. Interestingly he was admitted with acute abdominal pain nausea and vomiting and found on CT scan to have been only some jejunal thickening but an abnormality in the superior mesenteric artery formal CT angiogram is been done does show somewhat in the proximal superior mesenteric artery and. It appears to be dissection of plaque and then more distally some thickening of the artery which could be some degree of arthritis. The patient initially was having difficulty eating that this was manifest by pain in the right water and he states today he his gotten quite a bit better he's actually gone down to the [place] without difficulty. He states he's quite hungry. At this point time I think we need to better define the pathology of the superior mesenteric artery and I think formal arteriogram would best do this. I think then discussion would have to be it we do have a finding of a dissection or other potentially life-threatening problem whether or not stenting would be appropriate versus direct surgical intervention. I think we need to maintain him on heparin for now and get an arteriogram when it can be done and then we can decide what the next course of action. Discussed this with the patient and he seems to understand and agrees with Home Medications Medication Instructions Recorded Confirmed Type No Known Home Medications [No 08/18/15 08/09/16 History Known Home Medications] Allergies Allergy/AdvReac Type Severity Reaction Status Date / Time No Known Allergies Allergy Verified 08/09/16 05:25 Medical,Surgical,& Family Hx - Medical History Respiratory: History of: Asthma Musculoskeletal: History of: Back/Neck Problems, Herniated Disk - Social History Smoking Status: Smoker, status unknown Frequency of Alcohol Use: None Type of Drug Use: None Exam - Constitutional Vitals: Period Temp Pulse Resp BP Sys/Brunner Pulse Ox Last 24 Hr 98 F-98.8 F 53-83 16-22 99-121/52-66 94-100 Results - Labs CBC & BMP: 08/12/16 00:24 08/12/16 00:24
--- NOTE | 2016-08-12 16:53 | IR History and Physical Update ---
IR Pre-Procedure - History and Physical H&P was reviewed, the patient examined and there: are no changes in the patients condition since last H&P was completed. 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 However, patient continues to exhibit symptoms of postprandial angina, although symptoms have improved significantly since admission last Friday. Patient eating a bag of Doritos chips when I walked in the room just now. - Dictation Physical: refer to H&P completed by admitting physician - Physical Exam Vital Signs: Last Vital Signs Temp 98 F 08/12/16 04:00 Pulse 69 08/12/16 13:44 Resp 22 08/12/16 13:44 BP 99/52 08/12/16 04:00 Pulse Ox 100 08/12/16 13:44 Mental Status: alert and oriented - Sedation IR anesthesia plan for sedation: minimal ASA Class: I - Risks Risks: Procedures explained. Risks discussed include, but not limited to, the following:[ Stent placement, thrombosis of stent and SMA, need for eventual surgery, bleeding] All questions answered. 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 Plan: Mesenteric angiogram tomorrow. Possible stent placement if no other options exists and if lesion appears hemodynamically significant. Encourage smoking cessation. Current Visit: Yes
[2016-08-12] MEDS: TRACE ELEMENTS (5) 1 ML, MULTIVITAMIN INJ 10 ML in AMINO ACIDS/DEXT/LYTES 4.25-5% 2,000 ML IV SCH (18:47)
[2016-08-12] MEDS: ZALEPLON 5 MG CAPSULE PO SCH (20:59)
[2016-08-13] MEDS ORDERED: MIDAZOLAM 2 MG/2 ML VIAL IV ONE (00:01)
[2016-08-13] MEDS ORDERED: DIAZEPAM 5 MG TABLET PO ONE ×2 (00:01→10:30)
[2016-08-13] MEDS ORDERED: fentaNYL 100 MCG/2 ML VIAL IV ONE (00:01)
[2016-08-13 05:55] LABS: Basophils % 0.6 % (0.0-0.8); Eosinophils # 0.6 10*3/uL (0.0-0.87); Eosinophils % 9.4 % (0.00-10.9); Hematocrit 38.6 VOL% (42.0-52.0); Hemoglobin 12.3 GM/DL (14.0-18.0); Immature Granulocytes % 0.3 %; Immature Granulocytes Absolute 0.02 #; Lymphocytes # 2.9 10*3/uL (1.4-4.0); Lymphocytes % 44.5 % (21.2-54.2); Mean Corpuscular HGB Conc 31.9 GM/DL (32-36); Mean Corpuscular Hemoglobin 29 PG (27-34); Mean Corpuscular Volume 90.2 FL (87-102); Mean Platelet Volume 9.4 FL (9.6-12.0); Monocytes # 0.9 10*3/uL (0.11-0.8); Monocytes % 13.8 % (1.7-12.7); Neutrophils % 31.4 % (38.7-73.9); Platelet Count 265 T/CUMM (130-400); Red Blood Count 4.28 MC/CUMM (3.8-5.5); Red Cell Distribution Width 13.2 % (9.3-17.3); White Blood Count 6.5 T/CUMM (4-12)
[2016-08-13 06:17] LABS: Eosinophils 8 % (0-10); Hypochromasia Slight; Lymphocytes 43 % (20-55); Platelet Estimate Normal; Segmented Neutrophils 36 % (50-85); Total Cells Counted 100
[2016-08-13 06:32] LABS: Calcium 8.2 MG/DL (8.5-10.1); Osmolality,Calculated 292.3 MOS/KG (273-304); Potassium 3.9 MMOL/L (3.5-5.1)
[2016-08-13 06:39] LABS: Magnesium 2.5 MG/DL (1.8-2.4); Phosphorous 4.4 MG/DL (2.5-4.9); Prealbumin 18.1 MG/DL (20-40)
[2016-08-13] MEDS: ALBUTEROL/IPRATROPIUM 3 ML NEB RESP TX SCH ×3 (07:09→19:56)
--- NOTE | 2016-08-13 07:17 | General Surgery Progress Note ---
Assessment and Plan (1) Abdominal pain Status: Acute Assessment and plan: I have reviewed his films and discussed this case with Dr. Suero and Dr. Sorto and Dr. Mares. 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 He is not occluded. He actually is feeling better and we discussed nonoperative treatment of this if we can however if he worsens and we may need to look at intervention with either stenting or bypass. The etiology of this is unclear. Vasculitis would be a concern however this is very focal and unusual in appearance. We are checking some rheumatologic studies and if these look abnormal and we would consider steroids but I would like to hold off steroids initially because this will make his abdominal exam more difficult to interpret. I discussed all of these issues in detail with the patient and spent a good deal of time at the bedside and discussing this with his other physicians. I will be available this weekend and we'll continue to follow him. If he worsens then we may need to look at operative intervention. 08/10: He feels better. He has less abdominal pain but still has some soreness in his right lower quadrant. He has no acidosis or signs of bowel ischemia. His white blood cell count is normal. I would continue with anticoagulation IV at this point and I will leave it up to Dr. Mares on Friday about converting to oral anticoagulation. Hopefully we can avoid operative intervention . I do not see signs of bowel ischemia or an acute abdomen 08/11: He feels better and has less abdominal pain. His abdomen is nontender. I do not see evidence of significant bowel ischemia. 08/12: He feels better but when he tried to eat last night had abdominal pain again similar to before. This is concerning to me for potential intestinal angina. I have discussed the case with Dr. Mares and with Dr. Suero they're going to look at the potential for intervention. In the meantime we're keeping him anticoagulated. I do not see an indication for bowel resection or laparotomy at this point. He has no acidosis or signs of bowel necrosis. 08/13: He feels much better today. He is nearly pain-free at this point. He tolerated a by mouth diet better last night. He is for arteriogram today to look at his care mesenteric artery and see if any intervention is needed. 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 We will anticoagulate him however the patient understands that this may require intervention. He does not appear to be occluded. 08/11: We are keeping him anticoagulated for this finding. I have discussed this case with Dr. Mares. He does not have evidence of vascular occlusion at this point. His ESR is normal. Current Visit: Yes Subjective Patient reports: Present: feels better, pain is less. Absent: nausea, vomiting , fever Exam - Constitutional Vitals: Period Temp Pulse Resp BP Sys/Brunner Pulse Ox Last 24 Hr 98.1 F-98.6 F 68-83 18-22 108-126/61-79 94-100 General appearance: no acute distress - Eye Eye exam: Absent: scleral icterus - GI/Abdominal GI/Abdominal exam: Present: soft. Absent: distended, tenderness, rebound Results - Labs CBC & BMP: 08/13/16 05:38 08/13/16 05:38 Lab Results: I have reviewed the past 24 hour labs
--- NOTE | 2016-08-13 08:38 | Hospitalist Progress Note ---
Assessment and Plan (1) Abdominal pain Status: Acute Assessment and plan: Possible mesenteric artery dissection consider vasculitis. Current Visit: Yes Qualifiers: Abdominal location: right lower quadrant Qualified Code(s): R10.31 - Right lower quadrant pain Hospitalist: Subjective Interval history: 35 yo male presenting with abdominal pain with initial CT abnormality in the jejunum. Subsequent felt to have possible limited dissection in the superior mesenteric artery. He is scheduled for angiography today. He feels well pain has resolved and tolerating oral intake. Exam - Constitutional Vitals: Period Temp Pulse Resp BP Sys/Brunner Pulse Ox Last 24 Hr 98.1 F-98.6 F 68-83 18-22 115-126/67-79 96-100 General appearance: normal weight - Respiratory Respiratory exam: Present: clear to auscultation bilaterally. Absent: rales, rhonchi, wheezes - Cardiovascular Cardiovascular exam: Present: regular rate and rhythm - GI/Abdominal GI/Abdominal exam: Present: normal bowel sounds. Absent: distended, organomegaly - Extremities Exam Extremities exam: Absent: edema - Neurological Exam Neurological exam: Present: alert, oriented X3 Results - Labs CBC & BMP: 08/13/16 05:38 08/13/16 05:38
[2016-08-13] MEDS: CIPROFLOXACIN INJ 400 MG in PREMIX 1 EACH IV SCH ×2 (08:54→20:48)
--- NOTE | 2016-08-13 09:19 | Gastrointestinal Progress Note ---
<JenniferFaina Richard - Last Filed: 08/13/16 09:16> Assessment and Plan (1) Abdominal pain Status: Acute Assessment and plan: 08/13-No reports of pain, nausea, vomiting today. For arteriogram later today. Plan and addendum to follow by Dr Sorto. 08/12-Abd pain improved except with eating. No N/V. Continue to monitor at this time. Plan and addendum to follow by DR Sorto. 08/09-Sudden onset of abd pain, N/V, diarrhea this morning. Afebrile. WBC elevated. CT of abdomen with contrast findings noted. Stool studies pending. Plan and addendum to follow by Dr Sorto. Current Visit: Yes Qualifiers: Abdominal location: right lower quadrant Qualified Code(s): R10.31 - Right lower quadrant pain Gastroenterology - PN: Subj Interval history: CC: Abdominal pain Pt is seen lying in bed, awake, family at side. He states he is feeling better today. Having less abdominal pain post prandial. He is for arteriogram today. He has TPN started as well and states he feels better since this was initiated. Pt states he is going to stop smoking and family at bedside states they are going to support him in this by stopping as well. Abdomen is soft, nontender. ROS: Denies SOB or chest pain Exam (Progress Note) - Constitutional Vitals: Period Temp Pulse Resp BP Sys/Brunner Pulse Ox Last 24 Hr 98.1 F-98.6 F 68-83 18-22 115-126/67-79 96-100 General appearance: normal weight, no acute distress - Head Head exam: Present: normal inspection, normocephalic - Eye Eye exam: Present: other (lids and conjunctiva unremarkable). Absent: scleral icterus - ENT ENT exam: Present: normal exam, normal oropharynx - Neck Neck exam: Present: normal inspection - Respiratory Respiratory exam: Present: clear to auscultation bilaterally. Absent: rales, rhonchi, wheezes - Cardiovascular Cardiovascular exam: Present: regular rate and rhythm. Absent: diastolic murmur , JVD, systolic murmur - GI/Abdominal GI/Abdominal exam: Present: normal bowel sounds, soft. Absent: ascites, distended, mass, organomegaly, tenderness - Extremities Exam Extremities exam: Present: normal inspection, full ROM - Back Exam Back exam: Present: normal inspection - Neurological Exam Neurological exam: Present: alert, oriented X3 - Psychiatric Psychiatric exam: Present: normal affect, normal mood - Skin Skin exam: Present: normal color, warm, dry Results - Labs CBC & BMP: 08/13/16 05:38 08/13/16 05:38 Lab Results: I have reviewed the past 24 hour labs <Dae Sorto - Last Filed: 08/13/16 16:55> Exam (Progress Note) - Constitutional Vitals: Period Temp Pulse Resp BP Sys/Brunner Pulse Ox Last 24 Hr 97.1 F-98.5 F 68-83 13-22 117-146/67-87 96-100 Results - Labs CBC & BMP: 08/13/16 05:38 08/13/16 05:38
[2016-08-13] MEDS ORDERED: HEPARIN/NACL 0.9% 2 UNITS/ML 2,000 ML IV ONE (10:02)
[2016-08-13] MEDS: HEPARIN DRIP 25,000 UNITS/500 ML PREMIX IV SCH (10:13)
[2016-08-13] MEDS: metroNIDAZOLE INJ 500 MG in PREMIX 1 EACH IV SCH ×2 (10:19→23:36)
[2016-08-13] MEDS ORDERED: fentaNYL 100 MCG/2 ML VIAL ONE (10:35)
[2016-08-13] MEDS ORDERED: MIDAZOLAM 2 MG/2 ML VIAL ONE (10:35)
--- NOTE | 2016-08-13 11:42 | Post Interventional Procedure ---
Pre-op diagnosis: Mesenteric angiogram Post-op diagnosis: same Procedure: Angiogram celiac artery, common hepatic, bilateral renal, SMA, SHA. Contrast: Uend400, 110cc Flouroscopy: 2.9 min Radiologist: Hermann Suero Anesthesia: conscious sedation Medications: Versed 1mg, fentanyl 50mcg Total Sedation Time: 25 min Specimens: none sent Estimated blood loss: none Complications: none Condition: stable Description/Findings: Normal angiogram. No evidence vasospasm, vasculitis, dissection, aneurysm, or atheromatous plaque. 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 Plan: Mesenteric angiogram tomorrow. Possible stent placement if no other options exists and if lesion appears hemodynamically significant. Encourage smoking cessation. 11:43 @ 08/13/16: Normal angio. RLE and hip straight 6 hours recovery. Advance diet to regular. Call with questions. Current Visit: Yes
[2016-08-13] MEDS: DEXTROSE 5% 1,000 ML IV SCH ×2 (12:18→23:36)
--- NOTE | 2016-08-13 12:55 | Interventional Radiology Rpt ---
IR angio mesenteric, IR angio each add vessel, IR angio mesenteric, IR angio renal BI, IR angio celiac Indication: Spontaneous, and, as of yet, idiopathic SMA dissection on CT angiogram. Abdominal pain. MESENTERIC ANGIOGRAM Description: A formal timeout performed. Maximum sterile barrier technique was instituted. Right groin was prepped and draped in sterile fashion. Micropuncture needle used to access the right common femoral artery. Using Seldinger technique, a C2 glide catheter was used to select the following arteries, with angiograms performed at each selection: Celiac artery, common hepatic artery, left renal artery, right renal artery, superior mesenteric artery carried through the portal vein phase, and inferior mesenteric artery. No abnormality was identified with any selection. Access was removed. Hemostasis was achieved with manual compression. Contrast: Omnipaque 350, 110 cc. Fluoroscopy: 2.9 minutes. Conscious sedation: Under physician supervision, Versed 1 mg, fentanyl 50 mcg were administered intravenously for conscious sedation. Vital signs, including pulse oximetry, heart rate and blood pressure, continuously monitored by nursing present in the room. Physicians spent 25 minutes [id number] sedation time with the patient. Impression: No evidence of SMA dissection, atheromatous disease, vasospasm, stenosis or aneurysm. No evidence of vascular pathology in any of the studied territories, including polyarteritis nodosa and fibromuscular dysplasia. PROCEDURE INTERPRETED AT [facility] DEPARTMENT OF RADIOLOGY Final Report Signed by: Hermann Suero M.D.
[2016-08-13 14:06] LABS: Myeloperoxidase Antibody < 0.2 U
[2016-08-13] MEDS: FAT EMULSION 20% 250 ML IV SCH (16:51)
--- NOTE | 2016-08-13 17:00 | General Surgery Progress Note ---
Subjective Patient reports: Present: feels better, other (I reviewed Mr. Busby mesenteric arteriogram with Dr. Suero and it basically appears to be completely normal. Unclear whether there was some thrombus in the artery at the time CTA this has now completely resolved whether it was just an abnormality of the CTA itself. At any rate he appears to be tolerating a diet and feeling much better I don't believe he needs to continue anticoagulation or be considered for more strenuous anticoagulation. As a smoker it would probably be appropriate for him to take an 81 mg aspirin and work on his smoking cessation we can see him again on a when necessary basis he can be discharged home in the morning he tolerates his diet is comfortable) Exam - Constitutional Vitals: Period Temp Pulse Resp BP Sys/Brunner Pulse Ox Last 24 Hr 97.1 F-98.5 F 68-83 13-22 117-146/67-87 96-100 Results - Labs CBC & BMP: 08/13/16 05:38 08/13/16 05:38
[2016-08-13] MEDS: TRACE ELEMENTS (5) 1 ML, MULTIVITAMIN INJ 10 ML in AMINO ACIDS/DEXT/LYTES 4.25-5% 2,000 ML IV SCH (17:10)
[2016-08-13] MEDS: ZALEPLON 5 MG CAPSULE PO SCH (20:49)
--- NOTE | 2016-08-14 07:03 | Discharge Summary ---
Hospital Course - Hospital Course Hospital Course: 35 yo male smoker presented with abdominal pain. 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 At mesenteric angiography vascularity normal. He resolved his discomfort rapidly and resumed normal bowel function. Source currently unclear with vascular surgery recommending minimal anticoagulation and smoking cessation. GI will follow as outpatient for further studies. Diagnosis - Discharge Diagnosis (1) Abdominal pain Status: Acute Specialty Discharge - Follow Up or Referrals Follow up with: Dae Sorto MD [Physician] - Discharge Plan - Discharge Data Disposition: Disch To Home/Self Care Discharge Diet: advance to your usual diet - Discharge Medications No Action No Known Home Medications [No Known Home Medications] - Follow Up or Referral - Forms/Instructions Exam - Constitutional Vitals: Period Temp Pulse Resp BP Sys/Brunner Pulse Ox Last 24 Hr 97.1 F-98.5 F 69-88 13-22 107-146/58-87 94-99 Discharge Results Labs on day of discharge: Labs from last 24 hours 08/09/16 14:27 Anti-Proteinase 3 < 0.2 Myeloperoxidase Ab < 0.2 DS: Provider Date of admission: 08/09/16 10:39 Primary care physician: . No PCP Attending physician on admission: Belinda Celestin MD Consults: 08/09/16 12:12 Consult to Pharmacy [CONS] Routine Reason for Pharmacy Consult: Adjust Meds Renal Funct 08/12/16 10:08 Consult to Dietitian [CONS] Routine Reason for Dietitian: TPN/PPN-Initiate/Manage Consult Comment: PPN please 08/12/16 15:48 Consult to Physician [CONS] Routine Comment: Consulting Provider: Chacho James Consulting Provider Notified: Yes When should Consulting Provider be notified: Now Person Notified: Dr. Mares Consult Notification Comment: Dr. Valladares spoke with Dr. Mares. Discharging clinician: Ace Gallagher MD
[2016-08-14] MEDS: ALBUTEROL/IPRATROPIUM 3 ML NEB RESP TX SCH (07:15)
[2016-08-14] MEDS: metroNIDAZOLE INJ 500 MG in PREMIX 1 EACH IV SCH (08:30)
[2016-08-14] MEDS: CIPROFLOXACIN INJ 400 MG in PREMIX 1 EACH IV SCH (10:03)
--- NOTE | 2016-08-14 10:10 | Gastrointestinal Progress Note ---
<Faina Rodriguez - Last Filed: 08/14/16 10:06> Assessment and Plan (1) Abdominal pain Status: Acute Assessment and plan: 08/14-No pain, N/V. For discharge home today on aspirin regimen. Strong recommendation for smoking cessation give. Offered Nicotine patch at discharge. Plan and addendum to follow by Dr Sorto. 08/13-No reports of pain, nausea, vomiting today. For arteriogram later today. Plan and addendum to follow by Dr Sorto. 08/12-Abd pain improved except with eating. No N/V. Continue to monitor at this time. Plan and addendum to follow by DR Sorto. 08/09-Sudden onset of abd pain, N/V, diarrhea this morning. Afebrile. WBC elevated. CT of abdomen with contrast findings noted. Stool studies pending. Plan and addendum to follow by Dr Sorto. Qualifiers: Abdominal location: right lower quadrant Qualified Code(s): R10.31 - Right lower quadrant pain Gastroenterology - PN: Subj Interval history: CC: Abd pain, SMA dissection Pt is seen, sitting up in bed, with family at side. States he is feeling better. He denies any abdominal pain with eating. Denies any nausea or vomiting. States tolerating diet well. He states that the Nicotine patch did help and took away his craving however states he will start using the E- cigarettes at this time. Discussed with pt that this is still not a safer option and abstinence from all is the better choice. Pt states he will remain with the Nicotine patch and try this first. He is to be discharged home today with a daily aspirin regimen. Abdomen is soft, nontender. ROS: Denies SOB or chest pain Exam (Progress Note) - Constitutional Vitals: Period Temp Pulse Resp BP Sys/Brunner Pulse Ox Last 24 Hr 97.1 F-98.5 F 65-88 13-22 107-146/58-87 94-99 General appearance: normal weight, no acute distress - Head Head exam: Present: normal inspection, normocephalic - Eye Eye exam: Present: other (lids and conjunctiva unremarkable). Absent: scleral icterus - ENT ENT exam: Present: normal exam, normal oropharynx - Neck Neck exam: Present: normal inspection - Respiratory Respiratory exam: Present: clear to auscultation bilaterally. Absent: rales, rhonchi, wheezes - Cardiovascular Cardiovascular exam: Present: regular rate and rhythm. Absent: diastolic murmur , JVD, systolic murmur - GI/Abdominal GI/Abdominal exam: Present: normal bowel sounds, soft. Absent: ascites, distended, mass, organomegaly, tenderness - Extremities Exam Extremities exam: Present: normal inspection, full ROM - Back Exam Back exam: Present: normal inspection - Neurological Exam Neurological exam: Present: alert, oriented X3 - Psychiatric Psychiatric exam: Present: normal affect, normal mood - Skin Skin exam: Present: normal color, warm, dry Results - Labs CBC & BMP: 08/13/16 05:38 08/13/16 05:38 Lab Results: I have reviewed the past 24 hour labs Specialty Discharge - Follow Up or Referrals Follow up with: Dae Sorto MD [Physician] - <Dae Sorto - Last Filed: 08/14/16 23:14> Exam (Progress Note) - Constitutional Vitals: Period Temp Pulse Resp BP Sys/Brunner Pulse Ox Last 24 Hr 97.1 F-98.2 F 65-82 18-20 107-126/57-77 95-99 Results - Labs CBC & BMP: 08/13/16 05:38 08/13/16 05:38
[2016-08-14] MEDS: DEXTROSE 5% 1,000 ML IV SCH (10:13)
[2016-08-14 12:10] VITALS: BP 112/57
== END 2016-08-14 11:50 | disposition home or self-care (01) | DRG 392 ==
LOC: EDBD → EDUNIT# → N.ED 05:18 → N.EDINP 10:39 → SUATTDRO 10:39 → N.2E 11:50
PROVIDERS: ADMIT Internal Medicine; ATTEND Internal Medicine Cardiovascular Disease
PROC: IRAGMES (2016-08-13 10:50)